=== PATIENT | female | born 1985 | race Caucasian/White ===

== ENCOUNTER 2024-10-11 15:32 | Emergency (ER) | payer OTHER, SELFPAY ==
[2024-10-11 15:41] VITALS: BP 140/85; PULSE 94; RESP 15; TEMP 36.9; O2SAT 98
--- NOTE | 2024-10-11 16:30 | DI.CT_ITS ---
Exam(s) CT ABDOMEN PELVIS WO EXAM: CT ABDOMEN PELVIS WO CLINICAL HISTORY: left flank pain, hematuria. TECHNIQUE: Imaging Protocol: Axial computed tomography images with coronal and sagittal reformatted images were created and reviewed. COMPARISON: No exams were available for comparison FINDINGS: Evaluation of abdominal organs are limited by lack of IV contrast. ABDOMEN: Lung Bases: Normal where visualized. Liver: Normal density. There is a question of hypodense lesion in the periphery of the right lobe pos teriorly (series 7, image 14). It measures approximately 2 x 2 cm. Gallbladder and biliary tract: No radiodense calculus or biliary ductal dilation. Pancreas: Normal density, no abnormal calcifications or inflammatory process. Spleen: Normal. Kidneys: Normal size, contour and axis.No radiodense stones or obstructive uropathy. No masses seen. Adrenal glands: No mass is seen. Lymph nodes: Within normal limits. Abdominal Aorta: Abdominal portion non-dilated. PELVIS: Bladder:Symmetric distention, no gross wall thickening. Bowel: No obstruction or bowel wall thickening. Appendix is unremarkable. Peritoneal cavity: No ascites, collection or mesenteric inflammatory response. No free air. There i s subtle calcifications seen in the pelvis most consistent with phleboliths. Reproductive organs: Unremarkable as visualized. Bones: Within normal limits. Soft Tissues: Within normal limits. IMPRESSION: 1. There is no evidence of nephrolithiasis or obstructive uropathy. 2. An area of hypodensity in the lateral aspect of the right lobe of the liver. Further evaluation w ith a CT scan of the abdomen with contrast is recommended. Unexpected findings RADIATION DOSE DELIVERED: 341.38mGy.cm Total DLP DATA REPOSITORY: All CT scans at this facility are submitted to the National Radiology Data Registry (NRDR) Dose Index Registry (DIR) with the [employer] (A[employer]). RADIATION OPTIMIZATION: All CT scans at this facility use at least one of these dose optimization te chniques: automated exposure control; mA and/or kV adjustment per patient size (includes targeted exa ms where dose is matched to clinical indication); or iterative reconstruction.
[2024-10-11 16:39] LABS: Bilirubin Negative (Negative); Blood Large (Negative); Clarity Cloudy (Clear); Glucose Negative (Negative); Ketones Negative (Negative); Leukocyte Esterase Negative (Negative); Nitrite Negative (Negative); Urobilinogen 0.2 mg/dL (Up to 0.2)
[2024-10-11 16:54] LABS: Bacteria Negative HPF (Negative); C & S Indicated? No; Crystals Negative HPF (Negative); Epithelial Cells Rare HPF (Negative); Mucus Negative (Negative); RBC >50 HPF (0-2); WBC Negative HPF (0-5)
[2024-10-11 17:01] LABS: Abs Immature Grans 0.04 10^3/uL (0.0-0.06); Absolute Basophil Count 0.04 10^3/uL (0.0-0.2); Absolute Eosinophil Count 0.03 10^3/uL (0.0-0.7); Absolute Lymphocyte Count 1.55 10^3/uL (1.2-3.4); Absolute Monocyte Count 1.07 10^3/uL (0.1-0.8); Absolute Neutrophil Count 7.94 10^3/uL (1.2-6.7); Basophils % 0.4 %; Eosinophils % 0.3 %; HCT 38.5 % (36.0-46.0); HGB 13.1 g/dL (11.2-15.7); Immature Grans % 0.4 %; Lymphocytes % 14.5 %; MCH 29.8 pg (27.0-33.0); MCV 88 fL (80-95); MPV 8.6 fL (8.0-11.0); Neutrophils % 74.4 %; Platelet Count 271 10^3/uL (130-400); RDW 12.4 % (11.7-14.6); RDW-SD 39.7 fL; WBC 10.67 10^3/uL (4.4-10.8)
[2024-10-11] MEDS: Ondansetron 4 MG/2 ML VIAL IVP (17:06)
[2024-10-11 17:17] LABS: Lipase 43 U/L (<78)
[2024-10-11 17:21] LABS: ALT 36 U/L (14-59); AST 28 U/L (15-37); Albumin 3.5 g/dL (3.4-5.0); Alkaline Phosphatase 58 U/L (46-116); Anion Gap 5.5 mmol/L (3-11); BUN 8 mg/dL (7-18); CO2 28.5 mmol/L (21.0-32.0); CREATININE 1.1 mg/dL (0.55-1.02); Calcium 9.3 mg/dL (8.5-10.1); Chloride 105 mmol/L (98-107); Estimated GFR 65.96 (mL/min/1.73m2); Glucose 104 mg/dL (74-106); Magnesium 1.7 mg/dL (1.8-2.4); Potassium 3.9 mmol/L (3.5-5.1); Sodium 139 mmol/L (136-145); Total Protein 7.6 g/dL (6.4-8.2)
[2024-10-11] MEDS: ACETAMINOPHEN 500 MG/50 ML BAG 200 MG IVPB (17:25)
[2024-10-11] MEDS: Normal Saline 1,000 ML 1000 ML IV (17:25)
--- NOTE | 2024-10-11 19:12 | DI.VRAD_ITS ---
PROCEDURE INFORMATION: Exam: CT Abdomen And Pelvis Without Contrast Exam date and time: 10/11/2024 5:15 PM Age: 38 years old Clinical indication: Other: Left flank pain/ hematuria TECHNIQUE: Imaging protocol: Computed tomography of the abdomen and pelvis without contrast. Radiation optimization: All CT scans at this facility use at least one of these dose optimization techniques: automated exposure control; mA and/or kV adjustment per patient size (includes targeted exams where dose is matched to clinical indication); or iterative reconstruction. COMPARISON: No relevant prior studies available. FINDINGS: Lungs: Lung bases clear Liver: Grossly unremarkable unenhanced liver. Gallbladder and biliary ducts: Normal appearing gallbladder. No calcified gallstones. No biliary dilatation. Pancreas: Grossly unremarkable unenhanced pancreas. Spleen: Grossly unremarkable unenhanced spleen. Adrenal glands: Normal appearing adrenal glands. Kidneys and ureters: No radiopaque renal calculi, hydronephrosis, or proximal evidence of recent stone passage. No ureteral stones through the visualized portions of the ureters. Distal ureters partially obscured. Bilateral pelvic calcifications, presumably phleboliths given the lack of upstream obstructive findings. Stomach and bowel: No oral contrast. Stomach partially decompressed. No small bowel dilatation to suggest obstruction. Normal-appearing colon. No evidence of diverticulitis or colitis. Appendix: Normal appendix. Intraperitoneal space: No gross ascites or free air. Vasculature: Normal caliber abdominal aorta. Lymph nodes: No pathologically enlarged mesenteric, retroperitoneal, or pelvic sidewall lymph nodes. Urinary bladder: Urinary bladder partially collapsed but grossly unremarkable, as seen. Reproductive: Anteverted uterus, normal in size. Ovaries largely obscured but normal in size. 2.3 cm dominant right ovarian follicle Bones/joints: No acute fracture seen among the bones of the abdomen or pelvis. Soft tissues: Tiny fat-containing ventral hernia at the umbilicus, doubtful clinical significance. IMPRESSION: 1. No radiopaque renal calculi, hydronephrosis, or evidence of recent stone passage. Distal ureters obscured. Bilateral pelvic calcifications. Phleboliths suspected given the lack of upstream obstructive findings. 2. 2.3 cm dominant right ovarian follicle. No gross free pelvic fluid. 3. No acute bowel pathology demonstrated. Dictated and Authenticated by: Cecil Garcia MD. Orderin Kizzy Allison MD
[2024-10-11] MEDS: MacroBID 100 MG CAP, 2 CAPS/BTL PO (19:29)
--- NOTE | 2024-10-12 16:32 | W.ED.GENAD ---
Discharge Plan Disposition Patient Disposition: Home Condition: Stable Discharge Details Clinical Impression: Hematuria, Acute flank pain Primary Care Provider: Oleksandr Al ED Provider: Estefany Durand Home Meds and New Rx's Prescriptions: New nitrofurantoin monohyd/m-cryst [Macrobid] 100 mg capsule 100 mg PO BID 3 Days Qty: 6 0RF Rx Instructions: must administer with a meal/food Continued Wegovy 2.4 mg/0.75 mL pen injector 2.4 mg subcut QWEEK dextroamphetamine-amphetamine [Adderall] 20 mg tablet 20 mg PO DAILY levothyroxine 200 mcg recon soln 25 mcg IM DAILY Patient Comments: does not remember exact dose omeprazole 40 mg capsule,delayed release(DR/EC) 40 mg PO DAILY Discharge Instructions Instructions: Blood in Urine (Hematuria), Adult ED Additional Instructions: Take antibiotic as prescribed, yogurt daily while on antibiotic, please follow-up with your doctor next week for reassessment of your urinalysis or blood, if you continue to have blood in your urine you should follow-up with urology I am sending your urine for culture we will notify you if the results are positive for bacteria Please return earlier should you have worsening pain fever, or should any new concerns arise Referrals: Oleksandr Al [Primary Care Provider] - 2 days Discharge Data Discharge Date/Time-TO BE ENTERED AT DEPARTURE: 10/11/24 19:40 HPI General Date/Time Provider Initiated Documentation: 10/11/24 16:17. HPI Narrative: The patient is a 38-year-old female who presents with left flank pain and hematuria, which started this morning. She has a history of nephrolithiasis, which is why she presents. She reports no history of coagulopathy or cancer. She also reports no chest pain, shortness of breath, dizziness, weakness, nausea, vomiting, fever, chills, or potential . She reports no known exacerbating or alleviating factors. Related Data Home Medications ?Medication ?Instructions ?Recorded ?Confirmed dextroamphetamine-amphetamine 20 20 mg PO DAILY 10/11/24 10/11/24 mg tablet (Adderall) levothyroxine 200 mcg intravenous 25 mcg IM DAILY 10/11/24 10/11/24 powder for solution nitrofurantoin 100 mg PO BID 3 days #6 caps 10/11/24 monohydrate/macrocrystals 100 mg capsule (Macrobid) omeprazole 40 mg capsule,delayed 40 mg PO DAILY 10/11/24 10/11/24 release semaglutide (weight loss) 2.4 2.4 mg subcut QWEEK 10/11/24 10/11/24 mg/0.75 mL subcutaneous pen injector (Leilani) Previous Rx's ?Medication ?Instructions ?Recorded nitrofurantoin 100 mg PO BID 3 days #6 caps 10/11/24 monohydrate/macrocrystals 100 mg capsule (Macrobid) Allergies Allergy/AdvReac Type Severity Reaction Status Date / Time sumatriptan (From Imitrex) AdvReac Intermediate Other (See Verified 10/11/24 15:44 Comment) General Stated Complaint: Abd Prob SUSIE: 3 Exam Narrative Exam Narrative: General Appearance: Normal. Vital signs: Vitals stable. HEENT: Within normal limits. Respiratory: Within normal limits. Gastrointestinal: Mild tenderness in the left flank of the abdomen, no left lower quadrant tenderness. The remainder of the abdominal exam is benign. Skin: Warm and dry, no rash. Neurological: Normal. Course Vital Signs Vital signs: Vital Signs Temperature 36.9 C 10/11/24 15:41 Pulse 94 H 10/11/24 15:41 Respiratory Rate 15 10/11/24 15:41 Blood Pressure 140/85 10/11/24 15:41 Pulse Oximetry 98 10/11/24 15:41 Temperature 36.9 C 10/11/24 15:41 Pulse 94 H 10/11/24 15:41 Respiratory Rate 15 10/11/24 15:41 Blood Pressure 140/85 10/11/24 15:41 Blood Pressure Position Sitting 10/11/24 15:41 Pulse Oximetry 98 10/11/24 15:41 Oxygen Delivery Method Room Air 10/11/24 15:41 Oxygen Flow Rate 0 10/11/24 15:41 Lab/Test Results Lab/Test Results: 10/11/24 16:25 Urine - Clean Catch Urine Culture - Pending Laboratory Tests Range/Units 10/11/24 10/11/24 10/11/24 16:25 16:36 16:54 WBC Cancelled 10.67 RBC Cancelled 4.40 Hgb Cancelled 13.1 Hct Cancelled 38.5 MCV Cancelled 88 MCH Cancelled 29.8 MCHC Cancelled 34.0 RDW Cancelled 12.4 Plt Count Cancelled 271 MPV Cancelled 8.6 Immature Gran % Cancelled 0.4 Neutrophils % Cancelled 74.4 Band Neutrophils % Cancelled Lymphocytes % Cancelled 14.5 Atypical Lymphs % Cancelled Monocytes % Cancelled 10.0 Eosinophils % Cancelled 0.3 Basophils % Cancelled 0.4 Metamyelocytes % Cancelled Myelocytes % Cancelled Promyelocytes % Cancelled Other Cells % Cancelled Nucleated RBC % Cancelled 0.0 Absolute Neutrophils Cancelled 7.94 H Absolute Lymphocytes Cancelled 1.55 Absolute Monocytes Cancelled 1.07 H Absolute Eosinophils Cancelled 0.03 Absolute Basophils Cancelled 0.04 RBC Morphology Cancelled Polychromasia Cancelled Hypochromasia Cancelled Poikilocytosis Cancelled Basophilic Stippling Cancelled Anisocytosis Cancelled Microcytosis Cancelled Macrocytosis Cancelled Spherocytes Cancelled Tear Drop Cells Cancelled Ovalocytes Cancelled Stomatocytes Cancelled [place] Bodies Cancelled [place] Cells/Echinocytes Cancelled Acanthocytes (Spur) Cancelled Schistocytes Cancelled Sodium (136-145) mmol/L 139 Potassium (3.5-5.1) mmol/L 3.9 Chloride (98-107) mmol/L 105 Carbon Dioxide (21.0-32.0) mmol/L 28.5 Anion Gap (3-11) mmol/L 5.5 BUN (7-18) mg/dL 8 Creatinine (0.55-1.02) mg/dL 1.1 H Est GFR (CKD-EPI 2020) (mL/min/1.73m2) 65.96 Glucose (74-106) mg/dL 104 Calcium (8.5-10.1) mg/dL 9.3 Magnesium (1.8-2.4) mg/dL 1.7 L Total Bilirubin (0.2-1.0) mg/dL 0.80 AST (15-37) U/L 28 ALT (14-59) U/L 36 Alkaline Phosphatase (46-116) U/L 58 Total Protein (6.4-8.2) g/dL 7.6 Albumin (3.4-5.0) g/dL 3.5 Lipase (<78) U/L 43 Urine Color (Yellow) Franquez Urine Clarity (Clear) Cloudy Urine pH (5-8) 6.0 Ur Specific [place] (1.005-1.025) 1.020 Urine Protein (Neg-Trace) mg/dL 30 H Urine Ketones (Negative) mg/dL Negative Urine Blood (Negative) Large H Urine Nitrite (Negative) Negative Urine Bilirubin (Negative) Negative Urine Urobilinogen (Up to 0.2) mg/dL 0.2 Ur Leukocyte Esterase (Negative) Negative Urine RBC (0-2) HPF >50 H Urine WBC (0-5) HPF Negative Ur Epithelial Cells (Negative) HPF Rare Urine Crystals (Negative) HPF Negative Urine Bacteria (Negative) HPF Negative Urine Mucus (Negative) Negative Ur Culture Indicated? No Urine Glucose (Negative) mg/dL Negative POC- Test(urine) Negative Medical Decision Making Laboratory Studies CBC within normal limits. No leukocytosis. Mild hypomagnesemia at 1.7. Urinalysis shows red blood cells. Imaging CT of abdomen and pelvis, noncontrast, shows no evidence of obvious renal stone but evidence of a posterior mass in the liver. Initial Assessment: 38-year-old female with left flank pain and hematuria, history of nephrolithiasis, stable vitals, mild tenderness in left flank, benign abdominal exam, mild hypomagnesemia. Differential Diagnosis: - Nephrolithiasis: History of stones, CT abdomen and pelvis ordered, no evidence of obvious renal stone, follow-up with primary care physician for dedicated CT with contrast. - Posterior liver mass: Incidental finding on CT, follow-up with primary care physician for dedicated CT with contrast. ED Course: - CBC within normal limits. - Hemodynamically stable. - No leukocytosis. - Mild hypomagnesemia at 1.7, patient to supplement at home. - Urinalysis shows red blood cells, urine culture to be sent. - Started on Macrobid for 3 days for gross hematuria. - CT abdomen and pelvis without contrast ordered, no evidence of obvious renal stone, incidental posterior liver mass found. - Return precautions reviewed, patient expressed understanding. - Suction utilized to prevent aspiration products. Final Assessment: Patient with left flank pain and hematuria, stable vitals, no evidence of renal stone on CT, incidental posterior liver mass found, started on Macrobid, follow-up with primary care physician for dedicated CT with contrast, supplement magnesium at home. Clinical Impression: - Left flank pain - Hematuria - Posterior liver mass Disposition: - Discharge - Follow-Up: Close outpatient follow-up with primary care physician, recheck within the next week regarding hematuria, notify patient of abnormal urine culture. Patient Education: Return precautions reviewed, patient expressed understanding. MDM Components Evaluation: - Number of Differential Diagnoses or Management Options: Nephrolithiasis, Posterior liver mass - Amount and Complexity of Data Reviewed: CBC, urinalysis, CT abdomen and pelvis without contrast - Risk of Complication and Morbidity or Mortality: Mild hypomagnesemia, gross hematuria, incidental posterior liver mass Quality:SDOH Health Related Social Needs: No Data to Display PFSH All Active Problems (Updated 10/11/24 @ 19:20 by BRIGITTE Doran) Acute flank pain (Acute) Hematuria (Acute) Social History Smoking risk assessment performed?: No
== END 2024-10-11 19:40 | disposition home or self-care (01) ==
PROVIDERS: Emergency Provider Physician Assistant; PCP Internal Medicine
DX: R31.9 Hematuria, unspecified (principal); R10.30 Lower abdominal pain, unspecified; E83.42 Hypomagnesemia; Z79.899 Other long term (current) drug therapy; Z87.442 Personal history of urinary calculi
CPT/HCPCS: 36415; 80053; 81025; 83690; 96365; 96375; 99284; 74176; 81003; 81015; 83735; 85025; 87086; J0131; J2405